=== PATIENT | female | born 1980 | race Caucasian/White ===

== ENCOUNTER 2020-03-05 08:53 | Emergency (ER) | payer OTHER, SELFPAY ==
[~2020-03-05] VITALS: Ht 162.6 cm; Wt 61.6 kg
--- NOTE | 2020-03-05 09:22 | NUR ---
PT PRESENTS TO ED C/O BILATERAL FRONTAL HEADACHE [place] YESTERDAY WITH INTERMITTENT BLURRED VISION. PT STATES SHE WAS CLEANING HOUSE YESTERDAY AT [place], SUDDEN IN NATURE. PT DENIES INJURY/TRAUMA. PT IS A&OX4, NEUROLOGICALLY INTACT. ATTACHED TO BP AND SPO2 MONITORS. CALL LIGHT IN REACH. PT SEEN BY HAILEY BLUE, AWAITING ORDERS AT THIS TIME.
[2020-03-05] MEDS ORDERED: KETOROLAC 30 MG/1 ML ONE (09:27)
[2020-03-05] MEDS ORDERED: PROCHLORPERAZINE 5 MG/ML, 2ML ONE (09:28)
[2020-03-05] MEDS ORDERED: DIPHENHYDRAMINE 50 MG/ML, 1ML ONE (09:29)
[2020-03-05] MEDS ORDERED: DIPHENHYDRAMINE 50 MG/ML, 1ML IVPush ONE (09:30)
[2020-03-05] MEDS ORDERED: SODIUM CHLORIDE 0.9% 1,000ML IVBOLUS ONE (09:30)
[2020-03-05] MEDS ORDERED: KETOROLAC 30 MG/1 ML IVPush ONE (09:30)
[2020-03-05] MEDS ORDERED: PROCHLORPERAZINE 5 MG/ML, 2ML IVPush ONE (09:30)
[2020-03-05] MEDS ORDERED: SODIUM CHLORIDE FLUSH 10ML SYR IVF ONE (09:30)
--- NOTE | 2020-03-05 09:55 | NUR ---
PIV established, labs drawn, pt taken to CT at this time.
[2020-03-05 09:56] LABS: BASOPHILS # (AUTO) 0.04 x10^3/uL (0-0.1); BASOPHILS % (AUTO) 1 % (0-1); EOSINOPHILS # (AUTO) 0.05 x10^3/uL (0-0.4); EOSINOPHILS % (AUTO) 1 % (1-7); LYMPHOCYTES # (AUTO) 0.96 x10^3/uL (1-3.4); LYMPHOCYTES % (AUTO) 19 % (22-44); MD NO; MEAN CORPUSCULAR HEMOGLOBIN 31.3 pg (27.0-34.8); MEAN CORPUSCULAR HGB CONC 33.9 g/dL (32.4-35.8); MEAN CORPUSCULAR VOLUME 92.1 fL (80-100); MEAN PLATELET VOLUME 8.1 fL (7.4-10.4); MONOCYTES # (AUTO) 0.35 x10^3/uL (0.2-0.8); MONOCYTES % (AUTO) 7 % (2-9); NEUTROPHILS # (AUTO) 3.55 x10^3/uL (1.8-6.8); NEUTROPHILS % (AUTO) 72 % (42-75); PLATELET COUNT 262 x10^3/uL (130-400); RED BLOOD COUNT 4.64 x10^6/uL (3.82-5.3); RED CELL DISTRIBUTION WIDTH 12.6 % (9.6-15.2)
[2020-03-05 10:02] LABS: ALANINE AMINOTRANSFERASE 19 U/L (12-78); ALBUMIN 3.5 g/dL (3.4-5.0); ANION GAP 5 mmol/L (5-15); CALCIUM 8.9 mg/dL (8.5-10.1); CHLORIDE 110 mmol/L (98-107); CREATININE 0.78 mg/dL (0.55-1.02)
[2020-03-05 10:06] LABS: ALKALINE PHOSPHATASE 32 U/L (45-117); BILIRUBIN,TOTAL 0.5 mg/dL (0.2-1.0); TOTAL PROTEIN 7.2 g/dL (6.4-8.2)
--- NOTE | 2020-03-05 10:20 | NUR ---
PT BACK FROM CT, MEDICATED PER EMAR, TOLEARTING WELL. BP AND SPO2 MONITORS IN PLACE .PT REMAINS A&O, SPEECH CLEAR. AWAITING CT/LAB RESULTS AND DISPO.
[2020-03-05 11:56] VITALS: BP 116/57
--- NOTE | 2020-03-05 11:57 | NUR ---
PT A&OX4, RESPS EVEN AND UNLABORED. PT REPORTS HEADACHE RESOLVED. PIV DC'D WITH TIP INTACT. PT GIVEN DC INSTRUCTIONS AND SCRIPT, AMBULATORY TO DC DESK WITH STEADY GAIT. NADN AT DC.
== END 2020-03-05 11:58 | disposition home or self-care (01) ==
LOC: ED 09:25
DX: R51 Headache (principal); H53.8 Other visual disturbances
CPT/HCPCS: 36415; 70450; 80053; 84703; 85025; 96374; 96375; 99284; J0780; J1200; J1885; J7030